=== PATIENT | male | born 1965 ===

== ENCOUNTER 2021-09-28 10:02 | Outpatient (CLI) | payer OTHER ==
[2021-09-28] MEDS ORDERED: Magnevist 469MG/ML 20 ML VIAL ONE (10:18)
== END 2021-09-28 10:03 | disposition home or self-care (01) ==
LOC: CSHMRI 10:02
PROVIDERS: ATTEND Student in an Organized Health Care Education/Training Program
DX: C61 Malignant neoplasm of prostate (principal)
CPT/HCPCS: 72197